=== PATIENT | male | born 1990 | race Hispanic/Latino ===

== ENCOUNTER 2017-08-03 14:49 | Inpatient (IN) | payer BC ==
--- NOTE | 2017-08-03 15:47 | ED PDOC ---
HPI: Psych/Substance Abuse Time Seen by Provider: 08/03/17 14:59 Chief Complaint (Nursing): Psychiatric Evaluation Chief Complaint (Provider): Psychiatric Evaluation History Per: Patient History/Exam Limitations: no limitations Onset/Duration Of Symptoms: Days Additional Complaint(s): Patient is a 26 year old male with a past history of anxiety and depression, brought in to the ER by ambulance for psychiatric evaluation. States he texted a friend saying goodbye and friend called EMS. Currently he denies suicidal or homicidal ideation. No chest pain, shortness of breath, or abdominal pain. Patient reports he has attempted to harm himself recently, but he did not intend to kill himself. He sees a counselor but is not on any medications. PMD: None Past Medical History Reviewed: Historical Data, Nursing Documentation, Vital Signs Vital Signs: Last Vital Signs Temp 98.5 F 08/03/17 14:52 Pulse 99 H 08/03/17 14:52 Resp 18 08/03/17 14:52 BP 151/91 H 08/03/17 14:52 Pulse Ox 98 08/03/17 14:52 - Medical History PMH: Anxiety, Diabetes - Surgical History Surgical History: No Surg Hx - Family History Family History: States: Unknown Family Hx - Social History Current smoker - smoking cessation education provided: No Alcohol: Social Drugs: Denies - Home Medications Home Medications: Ambulatory Orders Medication Instructions Recorded No Known Home Med 08/03/17 - Allergies Allergies/Adverse Reactions: Allergies Allergy/AdvReac Type Severity Reaction Status Date / Time No Known Allergies Allergy Verified 08/03/17 14:56 Review of Systems ROS Statement: Except As Marked, All Systems Reviewed And Found Negative Cardiovascular: Negative for: Chest Pain Respiratory: Negative for: Shortness of Breath Gastrointestinal: Negative for: Abdominal Pain Psych: Negative for: Suicidal ideation (or homicidal), Other (Hallucinations) Physical Exam - Reviewed Nursing Documentation Reviewed: Yes Vital Signs Reviewed: Yes - Physical Exam Appears: Positive for: Non-toxic, No Acute Distress Head Exam: Positive for: ATRAUMATIC, NORMAL INSPECTION, NORMOCEPHALIC Skin: Positive for: Normal Color, Warm, Dry Eye Exam: Positive for: EOMI, Normal appearance, PERRL Neck: Positive for: Normal, Painless ROM, Supple Cardiovascular/Chest: Positive for: Regular Rate, Rhythm. Negative for: Murmur Respiratory: Positive for: Normal Breath Sounds. Negative for: Accessory Muscle Use, Respiratory Distress Gastrointestinal/Abdominal: Positive for: Normal Exam, Soft. Negative for: Tenderness Back: Positive for: Normal Inspection. Negative for: Vertebral Tenderness Extremity: Positive for: Normal ROM. Negative for: Pedal Edema, Deformity Neurologic/Psych: Positive for: Alert, Oriented (x3). Negative for: Motor/ Sensory Deficits - Laboratory Results Result Diagrams: 08/03/17 17:40 08/03/17 17:40 - ECG O2 Sat by Pulse Oximetry: 98 (RA) Pulse Ox Interpretation: Normal Medical Decision Making Medical Decision Making: Clinical Impression: History of depression Time: 15:38 Plan: * Placed on 1:1 observation * slag worker will evaluate patient Time: 16:48 Discussed case with reinforced ironworker, patient will be admitted for depression as per Dr. Ken Time: 17:22 --CMP --Alcohol serum --Urine drug screen --CBC --Urinalysis --Chest X-Ray 17:47 CHEST X-RAY FINDINGS: LUNGS: No active pulmonary disease. PLEURA: No significant pleural effusion identified, no pneumothorax apparent. CARDIOVASCULAR: Normal. OSSEOUS STRUCTURES: No significant abnormalities. VISUALIZED UPPER ABDOMEN: Normal. OTHER FINDINGS: None. IMPRESSION: No active disease. No significant interval change compared to the prior examination(s). 17:50 On reevaluation, patient is resting comfortably. Pending labs. 19:01 Labs reviewed, and are grossly normal. Patient is medically stable for psychiatric admission. Scribe Attestation: Documented by Susana Wadsworth, acting as a scribe for Vandana Gonzalez PA-C Provider Scribe Attestation: All medical record entries made by the Scribe were at my direction and personally dictated by me. I have reviewed the chart and agree that the record accurately reflects my personal performance of the history, physical exam, medical decision making, and the department course for this patient. I have also personally directed, reviewed, and agree with the discharge instructions and disposition. Disposition - Clinical Impression Clinical Impression: Depression - Patient ED Disposition Is Patient to be Admitted: Yes Discussed With : [place] A Badr Doctor Will See Patient In The: Hospital - Disposition Disposition Time: 16:48 Condition: STABLE - Admit Certification Admit to Inpatient:: Pyschiatry
--- NOTE | 2017-08-03 17:49 | RAD ---
HISTORY: clearance COMPARISON: 08/03/2017 FINDINGS: LUNGS: No active pulmonary disease. PLEURA: No significant pleural effusion identified, no pneumothorax apparent. CARDIOVASCULAR: Normal. OSSEOUS STRUCTURES: No significant abnormalities. VISUALIZED UPPER ABDOMEN: Normal. OTHER FINDINGS: None. IMPRESSION: No active disease. No significant interval change compared to the prior examination(s).
[2017-08-03 18:35] LABS: ALB/GLOB RATIO 1.4 (1.0-2.1); ALBUMIN 4.6 g/dL (3.5-5.0); ALT/SGPT 28 U/L (21-72); AST/SGOT 25 U/L (17-59); BLOOD UREA NITROGEN 17 mg/dl (9-20); CALCIUM 9.3 mg/dL (8.4-10.2); GFR AFRICAN-AMERICAN > 60; GFR NON-AFRICAN AMERICAN > 60
[2017-08-03 18:48] LABS: BASO % 0.5 % (0.0-2.0); EOS # 0.1 K/uL (0.0-0.7); EOS % 2.7 % (0.0-4.0); HEMOGLOBIN 14.9 g/dL (12.0-18.0); LYMPH # 0.9 K/uL (1.0-4.3); LYMPH % 15.3 % (20.0-40.0); MEAN CELL VOLUME 86.1 fl (80.0-94.0); MEAN CORPUSCULAR HEMOGLOBIN 28.7 pg (27.0-31.0); MEAN CORPUSCULAR HGB CONC 33.3 g/dL (33.0-37.0); MEAN PLATELET VOLUME 9.3 fl (7.2-11.7); MONO # 0.5 K/uL (0.0-0.8); MONO % 9.7 % (0.0-10.0); NEUT % 71.8 % (50.0-75.0); NRBC % 0.2 % (0.0-0.0); RBC 5.19 Mil/uL (4.40-5.90); RED CELL DISTRIBUTION WIDTH 13.5 % (11.5-14.5); WHITE BLOOD COUNT 5.6 K/uL (4.8-10.8)
[2017-08-03 19:29] LABS: SQUAMOUS EPITHIAL < 1 /hpf (0-5); URINE BILIRUBIN NEGATIVE (NEGATIVE); URINE BLOOD NEGATIVE (NEGATIVE); URINE CLARITY SLIGHTY-CLOUDY (Clear); URINE COLOR YELLOW (YELLOW); URINE GLUCOSE (UA) NEG (Normal); URINE LEUKOCYTE ESTERASE NEG Leu/uL (Negative); URINE NITRATE NEGATIVE (NEGATIVE); URINE PROTEIN NEGATIVE (NEGATIVE); URINE UROBILINOGEN 0.2-1.0 mg/dL (0.2-1.0)
[2017-08-03 19:56] LABS: BARBITURATES, UR NEGATIVE (NEGATIVE); BENZODIAZEPINES, UR NEGATIVE (NEGATIVE); OPIATES, UR NEGATIVE (NEGATIVE); PHENCYCLIDINE, UR NEGATIVE (NEGATIVE)
[2017-08-03] MEDS ORDERED: DiphenhydrAMINE 50 mg/ml Inj IM PRN (20:52)
[2017-08-03] MEDS ORDERED: Alum-Mag Hydrox-Simethicone Susp (30 mL) PO PRN (20:52)
[2017-08-03] MEDS ORDERED: Magnesium Hydroxide Susp 30 ml UD PO PRN (20:52)
--- NOTE | 2017-08-03 21:08 | PCM.BM ---
Treatment Plan Problems - Problems identified on initial assessmt Hopelessness/ Helplessness Date Initiated: 08/03/17 Time Initiated: 21:07 Assessment reference: NA Status: Active Treatment assets and liabiliti Patient Assests: cooperative, self-reliant, ADL independent, physically healthy , good support system, negotiates basic needs Patient Liabilities: live alone - Milieu Protocol Maintain good personal hygiene: every shift Encourage regular showers, every shift Remind patient to perform daily oral care Conduct patient checks and document Observation sheet: Q15 minutes Maintain personal safety: every shift Educate patient to report safety concerns to staff, every shift Monitor environment for contraband/sharps Medication safety: Monitor for expected outcome, potential side effects: every shift, Assess barriers to learning: every shift, Assess readiness for medication education: every shift
[2017-08-03 23:24] VITALS: O2SAT 98
[2017-08-04 07:47] LABS: T4 10.3 ug/dl (5.5-11.0)
[2017-08-04] MEDS ORDERED: Pneumococcal 23-Valent Vaccine IM ONE (09:00)
--- NOTE | 2017-08-04 11:34 | CP.PCM.CON ---
History of Present Illness - History of Present Illness History of Present Illness: Hospitalist Consult Note- Dr. Mejia 26 y.o male with PMH of depression admitted to the psych unit for depression. Patient seen and evaluated at bedside. Seen resting comfortably in bed, in NAD and AAOx3. Patient reports yesterday he was texting a female friend whom he liked. Plans were made for her to come visit but she cancelled. He told he was sorry he was bothering her and texted her a goodbye. EMS was called by the friend and he went to the ED for a psych evaluation. Patient denies suicidal ideation. Patient denies cp/chills/f/sob/n/v. No pain. No problems urination. Recent bowel movements. PMH: denies PSH: denies SH: denies smoking or illicit drug use, reports to socially drinking ALL: NKDA MEDS: none FH: mother- denies, father- denies Review of Systems - Constitutional Constitutional: absent: Chills, Fever - EENT Eyes: absent: Blurred Vision, Change in Vision Past Patient History - Past Social History Alcohol: Social Drugs: Denies - CARDIAC Hx Cardiac Disorders: No Hx Hypertension: No - PULMONARY Hx Respiratory Disorders: No Hx Tuberculosis: No - NEUROLOGICAL Hx Neurological Disorder: No HX Cerebrovascular Accident: No Hx Seizures: No - HEENT Hx HEENT Problems: No - RENAL Hx Chronic Kidney Disease: No - ENDOCRINE/METABOLIC Hx Endocrine Disorders: No - HEMATOLOGICAL/ONCOLOGICAL Hx Blood Disorders: No Hx Cancer: No Hx Human Immunodeficiency Virus (HIV): No - INTEGUMENTARY Hx Dermatological Problems: No - MUSCULOSKELETAL/RHEUMATOLOGICAL Hx Musculoskeletal Disorders: No - GASTROINTESTINAL Hx Gastrointestinal Disorders: No - GENITOURINARY/GYNECOLOGICAL Hx Genitourinary Disorders: No Hx Sexually Transmitted Disorders: No - PSYCHIATRIC Hx Anxiety: Yes - SURGICAL HISTORY Hx Surgeries: No - ANESTHESIA Hx Anesthesia: No Has any member of the family had a problem w/ anesthesia?: No Meds Allergies/Adverse Reactions: Allergies Allergy/AdvReac Type Severity Reaction Status Date / Time No Known Allergies Allergy Verified 08/03/17 14:56 - Medications Medications: Current Medications Acetaminophen (Tylenol 325mg Tab) 650 mg PO Q4 PRN PRN Reason: Pain, moderate (4-7) Al Hydrox/Mg Hydrox/Simethicone (Maalox Plus 30 Ml) 30 ml PO Q4 PRN PRN Reason: Dyspepsia Diphenhydramine HCl (Benadryl) 50 mg IM Q6 PRN PRN Reason: Extrapyramidal S/S Unable PO Diphenhydramine HCl (Benadryl) 50 mg PO HS PRN PRN Reason: Sleep Lorazepam (Ativan) 2 mg IM Q4 PRN PRN Reason: Anxiety/Agitation,Unable PO Lorazepam (Ativan) 1 mg PO Q4 PRN PRN Reason: Anxiety/Agitation Magnesium Hydroxide (Milk Of Magnesia) 30 ml PO HS PRN PRN Reason: Constipation Physical Exam - Constitutional Appears: Well, Non-toxic, No Acute Distress - Head Exam Head Exam: ATRAUMATIC, NORMAL INSPECTION, NORMOCEPHALIC - Eye Exam Eye Exam: EOMI, Normal appearance, PERRL Pupil Exam: NORMAL ACCOMODATION - ENT Exam ENT Exam: Mucous Membranes Moist, Normal Exam - Neck Exam Neck exam: Positive for: Normal Inspection - Respiratory Exam Respiratory Exam: Clear to Auscultation Bilateral, NORMAL BREATHING PATTERN. absent: Prolonged Expiratory Phase, Rhonchi, Wheezes, Respiratory Distress, Stridor - Cardiovascular Exam Cardiovascular Exam: REGULAR RHYTHM, +S1, +S2 - GI/Abdominal Exam GI & Abdominal Exam: Normal Bowel Sounds, Soft - Extremities Exam Extremities exam: Positive for: normal capillary refill, normal inspection. Negative for: calf tenderness - Back Exam Back exam: NORMAL INSPECTION. absent: CVA tenderness (L), CVA tenderness (R) - Neurological Exam Neurological exam: Alert, Oriented x3 - Psychiatric Exam Psychiatric exam: Depressed, Normal Affect - Skin Skin Exam: Dry, Intact, Normal Color, Warm Results - Vital Signs Recent Vital Signs: Last Vital Signs Temp 98.2 F 08/03/17 19:48 Pulse 86 08/03/17 21:21 Resp 16 08/03/17 21:21 BP 125/68 08/03/17 19:48 Pulse Ox 98 08/03/17 23:23 - Labs Result Diagrams: 08/03/17 17:40 08/03/17 17:40 Labs: Laboratory Results - last 24 hr 08/03/17 08/03/17 08/03/17 17:40 17:40 18:50 WBC 5.6 RBC 5.19 Hgb 14.9 Hct 44.7 MCV 86.1 MCH 28.7 MCHC 33.3 RDW 13.5 Plt Count 191 MPV 9.3 Neut % (Auto) 71.8 Lymph % (Auto) 15.3 L [place] % (Auto) 9.7 Eos % (Auto) 2.7 Baso % (Auto) 0.5 Neut # (Auto) 4.0 Lymph # (Auto) 0.9 L [place] # (Auto) 0.5 Eos # (Auto) 0.1 Baso # (Auto) 0.0 Sodium 144 Potassium 4.1 Chloride 106 Carbon Dioxide 24 Anion Gap 18 BUN 17 Creatinine 0.8 Est GFR ( Amer) > 60 Est GFR (Non-Af Amer) > 60 Random Glucose 90 Calcium 9.3 Total Bilirubin 0.8 AST 25 ALT 28 Alkaline Phosphatase 63 Total Protein 7.7 Albumin 4.6 Globulin 3.2 Albumin/Globulin Ratio 1.4 Triglycerides Cholesterol LDL Cholesterol Direct HDL Cholesterol Thyroxine (T4) TSH 3rd Generation Urine Color Urine Clarity Urine pH Ur Specific [place] Urine Protein Urine Glucose (UA) Urine Ketones Urine Blood Urine Nitrate Urine Bilirubin Urine Urobilinogen Ur Leukocyte Esterase Urine RBC (Auto) Urine Microscopic WBC Ur Squamous Epith Cells Urine Opiates Screen Negative Urine Methadone Screen Negative Ur Barbiturates Screen Negative Ur Phencyclidine Scrn Negative Ur Amphetamines Screen Negative U Benzodiazepines Scrn Negative U Oth Cocaine Metabols Negative U Cannabinoids Screen Negative Alcohol, Quantitative < 10 08/03/17 08/04/17 18:50 06:55 WBC RBC Hgb Hct MCV MCH MCHC RDW Plt Count MPV Neut % (Auto) Lymph % (Auto) [place] % (Auto) Eos % (Auto) Baso % (Auto) Neut # (Auto) Lymph # (Auto) [place] # (Auto) Eos # (Auto) Baso # (Auto) Sodium Potassium Chloride Carbon Dioxide Anion Gap BUN Creatinine Est GFR ( Amer) Est GFR (Non-Af Amer) Random Glucose Calcium Total Bilirubin AST ALT Alkaline Phosphatase Total Protein Albumin Globulin Albumin/Globulin Ratio Triglycerides 172 H Cholesterol 194 LDL Cholesterol Direct 136 H HDL Cholesterol 38 Thyroxine (T4) 10.3 TSH 3rd Generation 1.58 Urine Color Yellow Urine Clarity Slighty-cloudy Urine pH 6.0 Ur Specific [place] 1.023 Urine Protein Negative Urine Glucose (UA) Neg Urine Ketones Negative Urine Blood Negative Urine Nitrate Negative Urine Bilirubin Negative Urine Urobilinogen 0.2-1.0 Ur Leukocyte Esterase Neg Urine RBC (Auto) 2 Urine Microscopic WBC 2 Ur Squamous Epith Cells < 1 Urine Opiates Screen Urine Methadone Screen Ur Barbiturates Screen Ur Phencyclidine Scrn Ur Amphetamines Screen U Benzodiazepines Scrn U Oth Cocaine Metabols U Cannabinoids Screen Alcohol, Quantitative Assessment & Plan - Assessment and Plan (Free Text) Assessment: 26 y.o male with PMH of depression admitted to the psych unit for depression. Plan: 1. Depression -management per psych
--- NOTE | 2017-08-04 15:55 | PCM.PSYCH ---
Initial Psychiatric Evaluation - Initial Psychiatric Evaluation Legal Status: Capacity Chief Complaint (in patient's own words): I feel down at times so i cut myself to relieve the pain Patient's Reaction to Hospitalization: pt requested help History of Present Illness and Precipitating Events: Pt is a 26 year old, , Single Male, whom was brought to the ED via [facility], secondary to pt sending a text message in a "group text" saying "good-bye" as a way of informing them that he was going to end his life. pt has been depressed with history of superficially cutting himself since age 20, has been recently seeing a therapist but no history of being on medications pt had a recent break up with girl friend and accordingly has been depressed , did cut himself superficailly at the wrist to relieve the emotional pain pt denied any thoughts of suicide or self harm on the unit reported depressed mood with poor sleep denied any manic or psychotic symptoms collaterl information Pt is a 26 year old, , Single Male, whom was brought to the ED via [facility], secondary to pt sending a text message in a "group text" saying "good-bye" as a way of informing them that he was going to end his life. While CW met with pt, pt was alert and oriented x3. Pt was dressed in a hospital gown , neat appearance. Pt's affect was flat congruent to mood as evidenced by pt stating has he has an "undiagnosed hx of depression and anxiety, and he has attempted to overdose on pills in the past, once. Pt admitted to self- mutiliation,with the most recent "act" of self-injured his left leg ( superficial cuts) being a week ago because of feeling overwhelmed. Pt admitted to drinking "socially" at least 4 to 5 shots every weekend. Pt negated other Substance Use. Pt reported that he is presently working as [employer] for [employer] and he has been working there for under 1 year. Pt denied having any HI, HP, or Intent. Pt stated that he is still feeling depressed and he wants to seek help. Pt denied having or experiencing any A//V/T hallucinations or delusions. Pt stated that his appetite fluctuates and he is sleeping at least 6 to 8 hours per day, depending on what he is doing. Pt did not seem to be in acute distress a the time of the evaluation. CW educated pt in the Inpatient Admission Process and pt was offered admission; pt was agreeable to be admitted to [facility] for further mental health stabilization services. [ [ Current Medications: Active Medications Generic Name Dose Route Start Last Admin Trade Name Freq PRN Reason Stop Dose Admin Acetaminophen 650 mg 08/03/17 20:52 Tylenol 325mg Tab PO Q4 PRN Pain, moderate (4-7) Al Hydrox/Mg Hydrox/Simethicone 30 ml 08/03/17 20:52 Maalox Plus 30 Ml PO Q4 PRN Dyspepsia Diphenhydramine HCl 50 mg 08/03/17 20:52 Benadryl IM Q6 PRN Extrapyramidal S/S Unable PO Diphenhydramine HCl 50 mg 08/03/17 20:52 Benadryl PO HS PRN Sleep Escitalopram Oxalate 5 mg 08/04/17 12:55 08/04/17 14:36 Lexapro PO 5 mg DAILY VEGA Administration Lorazepam 2 mg 08/03/17 20:52 Ativan IM Q4 PRN Anxiety/Agitation,Unable PO Lorazepam 1 mg 08/03/17 20:52 Ativan PO Q4 PRN Anxiety/Agitation Magnesium Hydroxide 30 ml 08/03/17 20:52 Milk Of Magnesia PO HS PRN Constipation Past Psychiatric History - Past Psychiatric History Explanation of prior treatment: hx of self mutilative behavior since age 20, no hx of psychiatric hospitalizations Pertinent Medical Hx (Current Medical&Sleep Prob, Allergies): Allergies Allergy/AdvReac Type Severity Reaction Status Date / Time No Known Allergies Allergy Verified 08/03/17 14:56 No Known Home Med 08/03/17 Mental Status Examination - Personal Presentation Personal Presentation: Looks stated age - Affect Affect: Constricted, Depressed - Motor Activity Motor Activity: Psychomotor Retardation - Reliability in Providing Information Reliability in Providing Information: Fair - Speech Speech: Relevant - Mood Mood: Depressed - Formal Thought Process Formal Thought Process: No Impairment Additional comments: denied any current thoughts of self harm denied suicidal or homicidal ideations - Hallucinations/Delusions Additional comments: denied perceptual disturbances , non elicited - Obsessions/Compulsions Obsessions: No Compulsions: No - Cognitive Functions Judgement: Imparied, as evidence by: Poor judgement - Strength & Assets Inventory Strength & Assets Inventory: Intelligence, Family support - Limitations Additional comments: poor impulse control DSM 5 DX - Recommended/Plan of Treatment Treatment Recommendations and Plan of Treatment: major depression recurrent CBT group supportive therapy lexapro 5mg daily
[2017-08-05 09:15] VITALS: BP 153/80; PULSE 90; RESP 18; TEMP 97.7
--- NOTE | 2017-08-05 15:10 | PCM.PYCHDC ---
Mental Status Examination - Mental Status Examination Orientation: Person, Place, Situation, Time Memory: Intact Mood: Depressed (less depressed, has support of family,admits was impusle,no cutting or desire to do so) Affect: Broad Speech: Appropriate, Soft Attention: WNL Concentration: WNL Association: WNL Fund of Knowledge: WNL Formal Thought Process: No Impairment Description of patient's judgement and insight: improved Psychotic Thoughts and Behaviors: denied Suicidal Ideation: No Current Homicidal Ideation?: No Discharge Summary - Discharge Note Reason for Hospitalization: came to er, after reportedly sending text in period of being overwhelmed, saying good bye, admits was looking for attention hx of self injurous behavior cutting, currently denies, reports that will follow up with services 08/19/17. will be staying with parents this weekend. contracts for safety expresses hope for future. denies side effects from lexapro, laymen's terms able to state that knows medication will take time to start to work and will start and continue therapy. Laboratory Data: Abnormal Lab Results 08/04/17 06:55 RPR Nonreactive Consultations:: List each consultation separately and include: 1. Reason for request. 2. Findings. 3. Follow-up Consultations: hospitalist Summary of Hospital Course include:: 1. Description of specific treatment plan utilized for patients during their course of treatmen. 2. Summarize the time- course for resolution of acute symptoms and/or regressed behaviors. 3. Describe issues identified and worked on during hospitalization. 4. Describe medication utilized. 5. Describe medical problems identified and treated. 6. Reassessment of suicide risk Summary of Hospital Course: admitted voluntary basis to [facility] via [facility] after presentation via ems. ems was called by friend after pt reportedly sent out group text saying good bye. pt reports that in past has cut self to feel pain, not wanting to harm self ,. text was to get help when feeling frustrated but not having a desire to kill self. pt was evaluated by psychiatry, seen by hosptitalist. pt was on unit for two days, started on lexapro 5mg tab and attempted groups. was reported to be adherent and seen in unit with peers. pt requested to leave today as his parents were visiting from [place] to help him and that he would be staying with them/them with him. pt did not appear to meet screening criteria. was going to have a support system, had appt. for follow up set and a means to obtain lexapro. as such pt was discharged today via attending. crisis plan was provided [phone] - Diagnosis (1) Depression Current Visit: Yes Status: Acute - Final Diagnosis (DSM 5) Condition upon Discharge: STABLE DSM 5: major depressive disorder moderate to severe without psychosis Disposition: HOME/ ROUTINE Follow-up Treatment Plan: follow up opd, with crisis plan if necessary. continue lexapro 5mg po daily, psychiatric evaluations on ongoing basis, psychotherapy ?possible dbt hx of self injurous behavior - Smoking Cessation Reason for not providing: pt defers
== END 2017-08-05 16:57 | disposition home or self-care (01) | DRG 885 ==
LOC: H.ER 14:49 → H.ERHOLD 16:53 → H.PSYCH 20:29
PROVIDERS: ADMIT Psychiatry & Neurology Psychiatry; ATTEND Psychiatry & Neurology Psychiatry
PROC: GZ51ZZZ Individual Psychotherapy, Behavioral (ICD-10-PCS; principal; 2017-08-03)
DX: F32.1 Major depressive disorder, single episode, moderate (principal); E11.9 Type 2 diabetes mellitus without complications; F41.9 Anxiety disorder, unspecified